=== PATIENT | female | born 1965 | race American Indian/Alaskan Native ===

== ENCOUNTER 2018-06-10 10:56 | Emergency (ER) | payer OTHER ==
[2018-06-10 10:56] VITALS: BMI 26.9
--- NOTE | 2018-06-10 11:34 | C.PDOC ---
History Of Present Illness 52 year old female presents to ED with complaints of persistent right flank pain for the past week. Notes pain is localized, intermittent and worse with movement. +urinary urgency. No fever, nausea, vomiting, hematuria. Pt has history of kidney stones, and hypertension. No relief with Motrin 2 days ago. No HTN or pain meds today. PERSIST R FLANK PAIN X 1 WEEK. LOCALIZED INTERMIT WORSE W MOVEMENT. +URINARY URGENCY. NO FEVER, NV, HEMATURIA. HO KIDNEY STONES, HTN. NO RELIEF W MOTRIN 2 DAYS AGO, NO HTN OR PAIN MEDS TODAY. PSH MAURICIO, TUBAL LIGATION EXAM MILD DIST NONTOXIC ABD NEG BACK NO CVAT; REPRODUC PAIN W MOVEMENT NONTEND NEURO INTACT REMAINDER NEG Time Seen by Provider: 06/10/18 11:15 Chief Complaint (Nursing): Back Pain History Per: Patient History/Exam Limitations: no limitations Onset/Duration Of Symptoms: Days Current Symptoms Are (Timing): Still Present Quality Of Discomfort: "Pain" Alleviating Factors: None Recent travel outside of the [place]: No Additional History Per: Patient Past Medical History Reviewed: Historical Data, Nursing Documentation, Vital Signs Vital Signs: Last Vital Signs Temp 98.1 F 06/10/18 11:02 Pulse 62 06/10/18 11:02 Resp 19 06/10/18 11:02 BP 156/115 H 06/10/18 11:02 Pulse Ox 100 06/10/18 11:50 - Medical History PMH: Asthma (seasonal), HTN, Hypothyroidism, Kidney Stones Denies: Chronic Kidney Disease Surgical History: Cholecystectomy Other Surgeries: tubal ligation - [facility] Procedures ANESTH INJECT-SPIN CANAL (10/03/14) FUSION/REFUS OF 2-3 VERTEBRAE (11/19/14) INJECT STEROID (10/03/14) LUMBAR & LUMBOSACRAL FUSION OF POSTERIOR COL/TECHNIQUE (11/19/14) LUMBOSAC SPINE X-RAY NEC (10/03/14) SPINAL CANAL INJECT NEC (10/03/14) Family History: States: Unknown Family Hx - Social History Hx Tobacco Use: No Hx Alcohol Use: No Hx Substance Use: No - Immunization History Hx Tetanus Toxoid Vaccination: No Hx Influenza Vaccination: Yes Hx Pneumococcal Vaccination: No Review Of Systems Except As Marked, All Systems Reviewed And Found Negative. Constitutional: Negative for: Fever, Chills Gastrointestinal: Negative for: Nausea, Vomiting Genitourinary: Positive for: Other (urinary urgency) Musculoskeletal: Positive for: Back Pain (right flank) Physical Exam - Physical Exam Appears: Non-toxic, No Acute Distress, Other (In mild distress) Skin: Normal Color, Warm, Dry Head: Atraumatic, Normacephalic Eye(s): bilateral: Normal Inspection Oral Mucosa: Moist Neck: Normal ROM, Supple Chest: Symmetrical Cardiovascular: Rhythm Regular, No Murmur Respiratory: Normal Breath Sounds, No Rales, No Rhonchi, No Wheezing Gastrointestinal/Abdominal: Soft, No Tenderness Back: No CVA Tenderness, No Vertebral Tenderness, Other (reproducible pain with movement) Extremity: Normal ROM, No Deformity Neurological/Psych: Oriented x3, Normal Speech ED Course And Treatment - Laboratory Results Result Diagrams: 06/10/18 11:44 06/10/18 11:44 O2 Sat by Pulse Oximetry: 100 (RA) Pulse Ox Interpretation: Normal Progress - Re-Evaluation Re-evaluation Note: 06/10/18 13:06 SX RESOLVED. VSS - Data Reviewed Data Reviewed: Lab, Diagnostic imaging, Old records Medical Decision Making Medical Decision Making: Plan: Abd & Pelvis CT Blood work Urinalysis Flomax, Toradol, IV fluids Reassess Disposition Counseled Patient/Family Regarding: Studies Performed, Diagnosis, Need For Followup, Rx Given - Disposition Referrals: Cortez Gay MD [Staff Provider] - [facility] [Outside] [facility] [Outside] Disposition: HOME/ ROUTINE Disposition Time: 13:06 Condition: IMPROVED Prescriptions: Acetaminophen [Tylenol Extra Strength] 2 tab PO Q6 #30 tablet Ibuprofen [Motrin] 600 mg PO Q6 #30 tab Ondansetron [Zofran Odt] 4 mg PO TID PRN #9 odt PRN Reason: Nausea/Vomiting Tamsulosin [Flomax] 0.4 mg PO DAILY #14 cap Instructions: Kidney Stones (DC) Forms: [facility] (Serbian) - Clinical Impression Clinical Impression: Ureterolithiasis, Renal colic - Scribe Statement The provider has reviewed the documentation as recorded by the Scribe Florina Silva All medical record entries made by the Scribe were at my direction and personally dictated by me. I have reviewed the chart and agree that the record accurately reflects my personal performance of the history, physical exam, medical decision making, and the department course for this patient. I have also personally directed, reviewed, and agree with the discharge instructions and disposition.
[2018-06-10] MEDS ORDERED: Sodium Chloride 0.9% 1,000 ML IV STA (11:35)
[2018-06-10] MEDS ORDERED: LIDOCAINE IV STA (11:35)
[2018-06-10] MEDS ORDERED: SODIUM CHLORIDE 0.9% IV STA (11:35)
[2018-06-10 11:47] LABS: SQUAMOUS EPITHIAL 7 /hpf (0-5); URINE BACTERIA OCC (<OCC); URINE BILIRUBIN NEGATIVE (NEGATIVE); URINE BLOOD NEGATIVE (NEGATIVE); URINE CLARITY Clear (Clear); URINE COLOR Yellow (YELLOW); URINE GLUCOSE (UA) NORMAL (Normal); URINE LEUKOCYTE ESTERASE 1+ Leu/uL (Negative); URINE PROTEIN NEGATIVE (NEGATIVE); URINE UROBILINOGEN NORMAL mg/dL (0.2-1.0)
[2018-06-10] MEDS ORDERED: Sodium Chloride 0.9% 1,000 ML ONE (11:51)
[2018-06-10 11:55] LABS: BASO % 0.7 % (0.0-2.0); EOS # 0.1 K/uL (0.0-0.7); EOS % 1.4 % (0.0-4.0); HEMOGLOBIN 13.4 g/dL (11.0-16.0); LYMPH # 1.6 K/uL (1.0-4.3); LYMPH % 32.4 % (20.0-40.0); MEAN CELL VOLUME 90.5 fL (81.0-99.0); MEAN CORPUSCULAR HEMOGLOBIN 30.3 pg (27.0-31.0); MEAN CORPUSCULAR HGB CONC 33.5 g/dL (33.0-37.0); MEAN PLATELET VOLUME 12.6 fL (7.2-11.7); MONO # 0.2 K/uL (0.0-0.8); MONO % 5.2 % (0.0-10.0); NEUT # 2.9 K/uL (1.8-7.0); NEUT % 60.3 % (50.0-75.0); NRBC % 0.1 % (0.0-2.0); RBC 4.44 Mil/uL (3.80-5.20); RED CELL DISTRIBUTION WIDTH 13.5 % (11.5-14.5); WHITE BLOOD COUNT 4.8 K/uL (4.8-10.8)
[2018-06-10 12:05] LABS: ALB/GLOB RATIO 1.4 (1.0-2.1); ALT/SGPT 37 U/L (9-52); AST/SGOT 28 U/L (14-36); BLOOD UREA NITROGEN 15 mg/dL (7-17); CALCIUM 9.8 mg/dl (8.6-10.4); GFR AFRICAN-AMERICAN > 60; GFR NON-AFRICAN AMERICAN > 60; LIPASE 111 U/L (23-300)
--- NOTE | 2018-06-10 13:09 | CT ---
Date of service: 06/10/2018 PROCEDURE: CT Abdomen and Pelvis without intravenous contrast HISTORY: abd pain R FLANK COMPARISON: Comparison is made with 03/06/2014 TECHNIQUE: Axial and reformatted coronal and sagittal CT images of the abdomen and pelvis were obtained without IV or oral contrast administration. Contrast dose: 0 Radiation dose: Total exam DLP = 239.9 mGy-cm. This CT exam was performed using one or more of the following dose reduction techniques: Automated exposure control, adjustment of the mA and/or kV according to patient size, and/or use of iterative reconstruction technique. FINDINGS: LOWER THORAX: Unremarkable. LIVER: Unremarkable. No gross lesion or ductal dilatation. GALLBLADDER AND BILE DUCTS: Status post cholecystectomy PANCREAS: Unremarkable. No gross lesion or ductal dilatation. SPLEEN: Unremarkable. ADRENALS: Unremarkable. No mass. KIDNEYS AND URETERS: Unremarkable. No hydronephrosis. No solid massMild right hydronephrosis and proximal hydroureter up to 4 x 2 millimeter calculus at the mid right ureter. The right kidney is smaller in size than the left. There is also 5 x 2 millimeter nonobstructing calculus at the upper pole of the right kidney. No evidence of left renal calculi or hydronephrosis. VASCULATURE: Unremarkable. No aortic aneurysm. BOWEL: Unremarkable. No obstruction. No gross mural thickening. APPENDIX: No evidence of acute appendicitis. PERITONEUM: Unremarkable. No free fluid. No free air. LYMPH NODES: Unremarkable. No enlarged lymph nodes. BLADDER: Mild urinary bladder wall thickening. REPRODUCTIVE: Unremarkable. BONES: No acute fracture. OTHER FINDINGS: None. IMPRESSION: Mild right hydronephrosis and hydroureter up to 4 x 2 millimeter calculus at the mid right ureter. 5 x 2 millimeter calculus at the upper pole of the right kidney. The right kidney is smaller than the left demonstrates foci of cortical thinning could be due to prior infection or injury. Otherwise no evidence of acute pathology in the abdomen and pelvis.
[2018-06-10 13:15] VITALS: BP 150/69; PULSE 86; RESP 18; TEMP 98; O2SAT 98
== END 2018-06-10 13:15 | disposition home or self-care (01) ==
LOC: C.ER 10:56
DX: N13.2 Hydronephrosis with renal and ureteral calculous obstruction (principal)
CPT/HCPCS: 74176; 80053; 81001; 83690; 85025; 96374; 99284; J1885; J2001; J7030